=== PATIENT | female | born 1990 | race Caucasian/White ===

== ENCOUNTER 2017-01-15 20:07 | Emergency (ER) | payer OTHER ==
[2017-01-15 20:08] VITALS: BMI 28.0
[2017-01-15 20:21] VITALS: BP 118/64; PULSE 73; RESP 18; TEMP 98.4; O2SAT 98
[2017-01-15 20:41] LABS: URINE BILIRUBIN NEGATIVE (NEGATIVE); URINE BLOOD NEGATIVE (NEGATIVE); URINE GLUCOSE (UA) NEGATIVE (NEGATIVE); URINE KETONE NEGATIVE (NEGATIVE); URINE LEUKOCYTE ESTERASE NEGATIVE Leu/uL (NEGATIVE); URINE PROTEIN NEGATIVE mg/dL (<30 mg/dL); URINE UROBILINOGEN 0.2 E.U./dL (<1 E.U./dL)
[2017-01-15 20:42] LABS: URINE APPEARANCE CLEAR (CLEAR); URINE COLOR YELLOW (YELLOW)
--- NOTE | 2017-01-15 20:42 | ED PDOC ---
Arrival/HPI - General Chief Complaint: Abdominal Pain Time Seen by Provider: 01/15/17 20:35 Historian: Patient - History of Present Illness Narrative History of Present Illness (Text): 01/15/17 20:36 26 y/o female, no pmh, nkda, LMP 12/12/16, here for the test. Pt. stated that she did a test at home which she thinks that it's positive. Pt. has no nausea or vomiting, no fever or chills, no dizziness, no headache or night sweat, no palpitation, no change in vision, no other medical or psychological complaints. 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") - Pulmonary Hx Respiratory Disorders: No - Neurological Hx Neurological Disorder: Yes Hx Seizures: Yes (epilepsy) - HEENT Hx HEENT Disorder: No - Renal Hx Renal Disorder: No - Endocrine/Metabolic Hx Endocrine Disorders: No - Hematological/Oncological Hx Blood Disorders: Yes Hx Anemia: Yes - Integumentary Hx Dermatological Disorder: No - Musculoskeletal/Rheumatological Hx Musculoskeletal Disorders: No - Gastrointestinal Hx Gastrointestinal Disorders: No - Genitourinary/Gynecological Hx Genitourinary Disorders: No Hx Reproductive Disorders: Yes (OVARIAN CYST) - Psychiatric Hx Psychophysiologic Disorder: Yes Hx Anxiety: Yes Hx Depression: Yes Hx Substance Use: No - Past Surgical History Past Surgical History: No Previous - Anesthesia Hx Anesthesia: No Hx Anesthesia Reactions: No - Suicidal Assessment Feels Threatened In Home Enviroment: No Family/Social History - Physician Review Nursing Documentation Reviewed: Yes Family/Social History: Unknown Family HX Smoking Status: Never Smoked Hx Alcohol Use: No Hx Substance Use: No Hx Substance Use Treatment: No Allergies/Home Meds Allergies/Adverse Reactions: Allergies No Known Allergies Allergy (Verified 06/27/16 15:17) Review of Systems - Review of Systems Constitutional: absent: Fatigue, Weight Change, Fevers Eyes: absent: Vision Changes ENT: absent: Hearing Changes Respiratory: absent: Cough, Sputum Cardiovascular: absent: Chest Pain Gastrointestinal: absent: Abdominal Pain, Nausea, Vomiting Skin: absent: Rash, Pruritis, Skin Lesions, Laceration, Abscess, Ulcer Neurological: absent: Headache, Dizziness, Focal Weakness, Gait Changes, Speech Changes, Facial Droop, Disequilibrium, Seizure Physical Exam Vital Signs Reviewed: Yes Vital Signs Temp Pulse Resp BP Pulse Ox 01/15/17 20:15 98.4 F 73 18 118/64 98 Temperature: Afebrile Blood Pressure: Normal Pulse: Regular Respiratory Rate: Normal Appearance: Positive for: Well-Appearing, Non-Toxic, Comfortable Pain Distress: None Mental Status: Positive for: Alert and Oriented X 3 - Systems Exam Head: Present: Atraumatic, Normocephalic Pupils: Present: PERRL Extroacular Muscles: Present: EOMI Conjunctiva: Present: Normal Mouth: Present: Moist Mucous Membranes Neck: Present: Normal Range of Motion Respiratory/Chest: Present: Clear to Auscultation, Good Air Exchange. No: Respiratory Distress, Accessory Muscle Use Cardiovascular: Present: Regular Rate and Rhythm, Normal S1, S2. No: Murmurs Abdomen: Present: Normal Bowel Sounds. No: Tenderness, Distention, Peritoneal Signs Back: Present: Normal Inspection Upper Extremity: Present: Normal Inspection. No: Cyanosis, Edema Lower Extremity: Present: Normal Inspection. No: Edema Neurological: Present: GCS=15, CN II-XII Intact, Speech Normal Skin: Present: Warm, Dry, Normal Color. No: Rashes Psychiatric: Present: Alert, Oriented x 3, Normal Insight, Normal Concentration Medical Decision Making ED Course and Treatment: 01/15/17 20:55 -ua/urine 01/15/17 20:57 -urine hcg negative -UA show no UTI -Pt. is asymptomatic and no pain, will discharge home. -Discharge home with education on follow up with your own pmd and obgyn within 2 days, return to the ER for any new or worsening signs or symptoms. - Lab Interpretations Lab Results: Lab Results 01/15/17 20:25: Urine Color Yellow, Urine Appearance Clear, Urine pH 8.0, Ur Specific [place] 1.020, Urine Protein Negative, Urine Glucose (UA) Negative, Urine Ketones Negative, Urine Blood Negative, Urine Nitrate Negative, Urine Bilirubin Negative, Urine Urobilinogen 0.2, Ur Leukocyte Esterase Negative, Urine HCG, Qual Negative I have reviewed the lab results: Yes Interpretation: No clinic. lab abnormalty - PA / BUSINESS PERFORMANCE SPECIALIST / Resident Statement MD/DO has reviewed & agrees with the documentation as recorded. Disposition/Present on Arrival - Present on Arrival Any Indicators Present on Arrival: No History of DVT/PE: No History of Uncontrolled Diabetes: No Urinary Catheter: No History of Decub. Ulcer: No History Surgical Site Infection Following: None - Disposition Have Diagnosis and Disposition been Completed?: Yes Diagnosis: test negative Disposition: HOME/ ROUTINE Disposition Time: 20:57 Patient Plan: Discharge Condition: GOOD Additional Instructions: Discharge home with education on follow up with your own pmd and obgyn within 2 days, return to the ER for any new or worsening signs or symptoms. Referrals: PCP,NO [Primary Care Provider] - Follow up with primary [facility] [place] [Outside] - Follow up with primary Forms: WORK NOTE
== END 2017-01-15 21:08 | disposition home or self-care (01) ==
LOC: ED 20:07
DX: Z32.02 Encounter for pregnancy test, result negative (principal)

== ENCOUNTER 2017-01-19 16:09 | Emergency (ER) | payer OTHER ==
[2017-01-19 16:16] VITALS: BMI 29.7
[2017-01-19] MEDS ORDERED: Sodium Chloride 0.9% 1,000 ML IV STA (16:20)
[2017-01-19 16:21] VITALS: TEMP 98.2; O2SAT 100
--- NOTE | 2017-01-19 16:42 | ED PDOC ---
Arrival/HPI - History of Present Illness Time/Duration: < week (3 days) Severity Level: 3 (lower abd pain) <Marina Cook - Last Filed: 01/19/17 18:09> <Leonid Ny DO - Last Filed: 01/19/17 18:31> - General Chief Complaint: Dizziness/Lightheaded Time Seen by Provider: 01/19/17 16:20 - History of Present Illness Narrative History of Present Illness (Text): 01/19/17 16:42 26 yo F with no significant medical history presents to ER with 3 day h/o "tiredness." Patient states she took a test 3 days ago at home and it was positive. Patient admits to intermittent dizziness, mild suprapubic abd pain. Patient states her period is usually irregular, chemist organic reportedly started her on unknown OCPs approx 3 months ago (states she was given 30 pills and told to take 10 pills per month x 3 months, finished pills last week); patient states he periods were up to 4x/month, have significantly in frequency since new OCPs started, LMP 12/13/2016. Denies CP, SOB, n/v/d/c, fevers, chills, rashes, headache, confusion. 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") - Pulmonary Hx Respiratory Disorders: No - Neurological Hx Neurological Disorder: Yes Hx Seizures: Yes (possible hx of) - HEENT Hx HEENT Disorder: No - Renal Hx Renal Disorder: No - Endocrine/Metabolic Hx Endocrine Disorders: No - Hematological/Oncological Hx Blood Disorders: Yes Hx Anemia: Yes - Integumentary Hx Dermatological Disorder: No - Musculoskeletal/Rheumatological Hx Musculoskeletal Disorders: No - Gastrointestinal Hx Gastrointestinal Disorders: No - Genitourinary/Gynecological Hx Genitourinary Disorders: No Hx Reproductive Disorders: Yes (OVARIAN CYST) - Psychiatric Hx Psychophysiologic Disorder: Yes Hx Anxiety: Yes Hx Depression: Yes Hx Substance Use: No - Past Surgical History Past Surgical History: No Previous - Anesthesia Hx Anesthesia: No Hx Anesthesia Reactions: No - Suicidal Assessment Feels Threatened In Home Enviroment: No <Marina Cook - Last Filed: 01/19/17 18:09> Family/Social History Family/Social History: No Known Family HX Smoking Status: Never Smoked Hx Alcohol Use: No Hx Substance Use: No Hx Substance Use Treatment: No <Marina Cook - Last Filed: 01/19/17 18:09> Allergies/Home Meds <Marina Cook - Last Filed: 01/19/17 18:09> <Yanely Leonid - Last Filed: 01/19/17 18:31> Allergies/Adverse Reactions: Allergies No Known Allergies Allergy (Verified 01/19/17 16:16) Review of Systems - Physician Review All systems were reviewed & negative as marked: Yes - Review of Systems Constitutional: Fatigue Eyes: Normal. absent: Vision Changes ENT: Normal Respiratory: Normal. absent: SOB, Cough, Sputum, Wheezing Cardiovascular: VARMA. absent: Chest Pain, Palpitations, Edema, Calf Pain, Orthopnea, Syncope Gastrointestinal: Abdominal Pain (mild, suprapubic). absent: Constipation, Diarrhea, Nausea, Vomiting Genitourinary Female: absent: Dysuria, Frequency, Hematuria, Urine Output Changes, Vaginal Bleeding, Vaginal Discharge Musculoskeletal: absent: Back Pain, Neck Pain Skin: absent: Rash, Skin Lesions Neurological: Dizziness (mild, intermittent). absent: Headache, Focal Weakness Endocrine: absent: Polyuria, Polydipsia Hemo/Lymphatic: absent: Adenopathy, Easy Bleeding, Easy Bruising Psychiatric: absent: Anxiety, Depression <Marina Cook - Last Filed: 01/19/17 18:09> Physical Exam Vital Signs Reviewed: Yes Temperature: Afebrile Blood Pressure: Normal Pulse: Regular Respiratory Rate: Normal Appearance: Positive for: Well-Appearing, Non-Toxic, Comfortable Pain Distress: None Mental Status: Positive for: Alert and Oriented X 3 - Systems Exam Head: Present: Atraumatic, Normocephalic Pupils: Present: PERRL Extroacular Muscles: Present: EOMI Conjunctiva: Present: Normal. No: Icteric Mouth: Present: Moist Mucous Membranes Pharnyx: Present: Normal Nose (Internal): Present: Normal Inspection Neck: Present: Normal Range of Motion. No: Meningeal Signs, JVD Respiratory/Chest: Present: Clear to Auscultation, Good Air Exchange. No: Respiratory Distress, Accessory Muscle Use, Wheezes, Rhonchi Cardiovascular: Present: Regular Rate and Rhythm, Normal S1, S2. No: Murmurs Abdomen: Present: Normal Bowel Sounds. No: Tenderness, Distention, Peritoneal Signs Upper Extremity: Present: Normal Inspection, NORMAL PULSES, Capillary Refill < 2s. No: Cyanosis, Edema Lower Extremity: Present: Normal Inspection, NORMAL PULSES. No: Edema, CALF TENDERNESS, Capillary Refill < 2 s Neurological: Present: GCS=15, CN II-XII Intact, Speech Normal Skin: Present: Warm, Dry, Normal Color. No: Rashes Psychiatric: Present: Alert, Oriented x 3, Normal Insight, Normal Concentration <Marina Cook - Last Filed: 01/19/17 18:09> Medical Decision Making - Lab Interpretations I have reviewed the lab results: Yes Interpretation: All labs normal <Marina Cook - Last Filed: 01/19/17 18:09> <Leonid Ny DO - Last Filed: 01/19/17 18:31> ED Course and Treatment: 01/19/17 17:10 26 yo F presents with late menstrual period, states home test was positive. Urine and blood HCG, labs. IVF. (Marina Cook) - Lab Interpretations Lab Results: 01/19/17 17:25 01/19/17 17:25 Lab Results 01/19/17 17:25: Beta HCG, Quant 12.87 H 01/19/17 17:25: Sodium 141, Potassium 4.0, Chloride 104, Carbon Dioxide 25, Anion Gap 16, BUN 11, Creatinine 0.5, Est GFR ( Amer) > 60, Est GFR (Non- Af Amer) > 60, Random Glucose 79, Calcium 9.8, Total Bilirubin 0.6, AST 27, ALT 23, Alkaline Phosphatase 59, Total Protein 8.6 H, Albumin 4.6, Globulin 3.9, Albumin/Globulin Ratio 1.2, Lipase 105 01/19/17 17:25: Urine Color Yellow, Urine Appearance Clear, Urine pH 6.0, Ur Specific [place] >= 1.030, Urine Protein Negative, Urine Glucose (UA) Negative, Urine Ketones Negative, Urine Blood Negative, Urine Nitrate Negative, Urine Bilirubin Negative, Urine Urobilinogen 0.2, Ur Leukocyte Esterase Trace H, Urine RBC Pending, Urine WBC Pending, Urine HCG, Qual Negative 01/19/17 17:25: WBC 4.7, RBC 4.82, Hgb 11.7 L, Hct 36.8, MCV 76.3 L, MCH 24.3 L , MCHC 31.8, RDW 16.0 H, Plt Count 351, MPV 10.0, Gran % 48.1 L, Lymph % (Auto) 41.9 H, [place] % (Auto) 8.1 H, Eos % (Auto) 1.1 L, Baso % (Auto) 0.8, Gran # 2.27 , Lymph # 2.0, [place] # 0.4, Eos # 0.1, Baso # 0.04 - Medication Orders Current Medication Orders: Discontinued Medications Sodium Chloride (Sodium Chloride 0.9%) 1,000 mls @ 1,000 mls/hr IV .Q1H STA Stop: 01/19/17 17:19 Last Admin: 01/19/17 17:33 Dose: 1,000 mls/hr - PA / POWER SUPPLY ENGINEER / Resident Statement FARHAT has reviewed & agrees with the documentation as recorded. FARHAT has examined the patient and agrees with the treatment plan. <Leonid Ny DO - Last Filed: 01/19/17 18:31> Disposition/Present on Arrival - Present on Arrival Any Indicators Present on Arrival: No History of DVT/PE: No History of Uncontrolled Diabetes: No Urinary Catheter: No History of Decub. Ulcer: No History Surgical Site Infection Following: None - Disposition Have Diagnosis and Disposition been Completed?: Yes Disposition Time: 17:55 Patient Plan: Discharge <Marina Cook - Last Filed: 01/19/17 18:09> <Leonid Ny DO - Last Filed: 01/19/17 18:31> - Disposition Diagnosis: Dehydration Disposition: HOME/ ROUTINE Discharge Instructions (ExitCare): Dehydration (ED) Print Language: MALTESE Additional Instructions: Please followup with your primary care physician or at [place] [facility] [place] within 1- 3 days. Please followup with your chemist organic or with Dr. Marcial within 1-2 days. Referrals: [facility] [place] - Follow up with primary Connie Marcial MD [Staff Provider] - Follow up with primary
[2017-01-19 17:33] VITALS: PULSE 69
[2017-01-19 17:35] LABS: ADD MANUAL DIFF? NO
[2017-01-19 17:40] LABS: BASO # 0.04 K/mm3 (0.0-2.0); BASO % 0.8 % (0.0-3.0); EOS # 0.1 (0.0-0.7); EOS % 1.1 % (1.5-5.0); GRAN # 2.27 (1.4-6.5); GRAN % 48.1 % (50.0-68.0); HEMATOCRIT 36.8 % (36.0-48.0); LYMPH % 41.9 % (22.0-35.0); MEAN CELL VOLUME 76.3 fL (80.0-105.0); MEAN CORPUSCULAR HEMOGLOBIN 24.3 pg (25.0-35.0); MEAN CORPUSCULAR HGB CONC 31.8 g/dl (31.0-37.0); MONO # 0.4 (0.1-0.6); MONO % 8.1 % (1.0-6.0); PLATELET COUNT 351 10^3/uL (120.0-450.0); WHITE BLOOD COUNT 4.7 10^3/ul (4.5-11.0)
[2017-01-19 17:41] LABS: URINE BILIRUBIN NEGATIVE (NEGATIVE); URINE BLOOD NEGATIVE (NEGATIVE); URINE GLUCOSE (UA) NEGATIVE (NEGATIVE); URINE KETONE NEGATIVE (NEGATIVE); URINE LEUKOCYTE ESTERASE TRACE Leu/uL (NEGATIVE); URINE PROTEIN NEGATIVE mg/dL (<30 mg/dL); URINE UROBILINOGEN 0.2 E.U./dL (<1 E.U./dL)
[2017-01-19 17:45] LABS: URINE COLOR YELLOW (YELLOW)
[2017-01-19 17:46] LABS: URINE APPEARANCE CLEAR (CLEAR)
[2017-01-19 17:51] LABS: ALB/GLOB RATIO 1.2 (1.1-1.8); ALKALINE PHOSPHATASE 59 U/L (38-133); ALT/SGPT 23 U/L (7-56); AST/SGOT 27 U/L (15-39); BILIRUBIN,TOTAL 0.6 mg/dL (0.2-1.3); BLOOD UREA NITROGEN 11 mg/dL (7-21); CALCIUM 9.8 mg/dL (8.4-10.5); CARBON DIOXIDE 25 mmol/L (21-33); CHLORIDE 104 mmol/L (98-107); GFR AFRICAN-AMERICAN > 60; GLUCOSE,RANDOM 79 mg/dL (70-110); LIPASE 105 U/L (23-300); SODIUM 141 mmol/L (132-148); TOTAL PROTEIN 8.6 g/dL (5.8-8.3)
[2017-01-19 18:41] LABS: URINE BACTERIA MOD (NEG)
[2017-01-19 19:00] VITALS: BP 124/70; RESP 16
== END 2017-01-19 18:38 | disposition home or self-care (01) ==
LOC: ED 16:09
DX: E86.0 Dehydration (principal)
CPT/HCPCS: 80053; 81001; 82948; 83690; 84702; 84703; 85025; 87086; 99285; G0480; J7040

== ENCOUNTER 2017-05-19 12:07 | Emergency (ER) | payer OTHER ==
[2017-05-19 12:07] VITALS: BMI 29.7
[2017-05-19 13:02] VITALS: PULSE 72; O2SAT 100
[2017-05-19 13:21] LABS: URINE BILIRUBIN NEGATIVE (NEGATIVE); URINE BLOOD NEGATIVE (NEGATIVE); URINE GLUCOSE (UA) NEGATIVE (NEGATIVE); URINE KETONE NEGATIVE (NEGATIVE); URINE LEUKOCYTE ESTERASE MODERATE Leu/uL (NEGATIVE); URINE PROTEIN NEGATIVE mg/dL (<30 mg/dL); URINE UROBILINOGEN 0.2 E.U./dL (<1 E.U./dL)
[2017-05-19 13:23] LABS: URINE APPEARANCE SL CLOUDY (CLEAR); URINE COLOR YELLOW (YELLOW)
[2017-05-19 13:28] LABS: URINE BACTERIA MANY (NEG); URINE EPITHELIAL CELLS MANY /hpf (0-5); URINE RBC NEGATIVE /hpf (0-2)
[2017-05-19 13:50] LABS: BASO # 0.04 K/mm3 (0.0-2.0); BASO % 0.6 % (0.0-3.0); EOS # 0.1 (0.0-0.7); EOS % 0.8 % (1.5-5.0); GRAN # 3.4 (1.4-6.5); HEMATOCRIT 34.6 % (36.0-48.0); LYMPH # 2.2 (1.2-3.4); LYMPH % 35.5 % (22.0-35.0); MEAN CELL VOLUME 76.7 fl (80.0-105.0); MEAN CORPUSCULAR HEMOGLOBIN 24.2 pg (25.0-35.0); MEAN CORPUSCULAR HGB CONC 31.5 g/dl (31.0-37.0); MEAN PLATELET VOLUME 9.2 fl (7.0-11.0); MONO # 0.6 (0.1-0.6); MONO % 9.1 % (1.0-6.0); WHITE BLOOD COUNT 6.3 10^3/ul (4.5-11.0)
--- NOTE | 2017-05-19 13:57 | ED PDOC ---
Addendum entered and electronically signed by Tom Alicea PA-C 05/22/17 15:03: Addendum Addendum: 05/22/17 15:03 Urine culture show gram positive cocci, discharge home with the macrobid. Original Note: Arrival/HPI - General Chief Complaint: Female Genitourinary Time Seen by Provider: 05/19/17 12:15 Historian: Patient - History of Present Illness Narrative History of Present Illness (Text): 05/19/17 13:55 27-year-old 78 weeks . Patient presents today with a one-month history of lower abdominal pain and vaginal discharge. Patient denies vaginal bleeding. Complaining of lower abdominal cramping. Patient states while in our area she was given Flagyl month ago for which 10 days. Patient states the discharge has not resolved. Patient denies nausea vomiting diarrhea constipation. Denies chest pain or shortness of breath. Patient is complaining of burning sensation with urination. Denies dizziness or weakness. 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") - Pulmonary Hx Respiratory Disorders: No - Neurological Hx Neurological Disorder: Yes Hx Seizures: Yes (possible hx of) - HEENT Hx HEENT Disorder: No - Renal Hx Renal Disorder: No - Endocrine/Metabolic Hx Endocrine Disorders: No - Hematological/Oncological Hx Blood Disorders: Yes Hx Anemia: Yes - Integumentary Hx Dermatological Disorder: No - Musculoskeletal/Rheumatological Hx Musculoskeletal Disorders: No - Gastrointestinal Hx Gastrointestinal Disorders: No - Genitourinary/Gynecological Hx Genitourinary Disorders: No Hx Reproductive Disorders: Yes (OVARIAN CYST) - Psychiatric Hx Psychophysiologic Disorder: Yes Hx Anxiety: Yes Hx Depression: Yes Hx Substance Use: No - Past Surgical History Past Surgical History: No Previous - Anesthesia Hx Anesthesia: No Hx Anesthesia Reactions: No - Suicidal Assessment Feels Threatened In Home Enviroment: No Family/Social History - Physician Review Nursing Documentation Reviewed: Yes Family/Social History: Unknown Family HX Smoking Status: Never Smoked Hx Alcohol Use: No Hx Substance Use: No Hx Substance Use Treatment: No Allergies/Home Meds Allergies/Adverse Reactions: Allergies No Known Allergies Allergy (Verified 05/19/17 12:58) Review of Systems - Review of Systems Constitutional: absent: Fatigue, Fevers Respiratory: absent: SOB, Cough Cardiovascular: absent: Chest Pain, Palpitations Gastrointestinal: Abdominal Pain. absent: Constipation, Diarrhea, Nausea, Vomiting Genitourinary Female: Dysuria, Vaginal Discharge. absent: Vaginal Bleeding Musculoskeletal: absent: Arthralgias, Back Pain, Neck Pain Skin: absent: Rash, Pruritis Neurological: absent: Headache, Dizziness Psychiatric: absent: Anxiety, Depression Physical Exam Vital Signs Reviewed: Yes Vital Signs Temp Pulse Resp BP Pulse Ox 05/19/17 15:00 98.0 F 72 18 115/67 100 05/19/17 12:48 98.7 F 72 16 105/70 100 Temperature: Afebrile Blood Pressure: Normal Pulse: Regular Respiratory Rate: Normal Appearance: Positive for: Well-Appearing, Non-Toxic, Comfortable Pain Distress: None Mental Status: Positive for: Alert and Oriented X 3 - Systems Exam Head: Present: Atraumatic Mouth: Present: Moist Mucous Membranes Neck: Present: Normal Range of Motion Respiratory/Chest: Present: Clear to Auscultation, Good Air Exchange. No: Respiratory Distress, Accessory Muscle Use Cardiovascular: Present: Regular Rate and Rhythm, Normal S1, S2. No: Murmurs Abdomen: Present: Tenderness (+ minimal suprapubic tenderness), Normal Bowel Sounds. No: Distention, Peritoneal Signs, Rebound, Guarding Genitourinary/Pelvic Exam: Present: Normal External Genitalia, Vaginal Discharge , Cervical os Closed, Other (chaparoned by carmen EMT). No: Vaginal Lesions, Adenexal Tenderness, Adenexal Mass, Cervical Motion Tendernes, Odor Back: Present: Normal Inspection. No: CVA Tenderness, Midline Tenderness, Paraspinal Tenderness Lower Extremity: No: Edema Neurological: Present: GCS=15, Speech Normal Skin: Present: Warm, Dry, Normal Color. No: Rashes Psychiatric: Present: Alert, Oriented x 3 Medical Decision Making ED Course and Treatment: 05/19/17 13:56 Patient is nontoxic well appearing in no distress. vitals stable. CBC: hb.9 CMP: wnl Beta hC TYPE AND SCREEN: O+ Urinalysis:+ leukocytes, + bacteria Ultrasound: FINDINGS: UTERUS: Gestational sac: Single intrauterine gestation. Heart rate: 171 bpm. age (Ultrasound estimated): 7 weeks and 5 days. Coreen-gestational hemorrhage: None. Date of delivery (Ultrasound estimated) : 12/31/2017 Uterus measures 9.6 x 8.0 x 0.9 cm. Normal in size and appearance. CERVIX: Long and closed. No cervical abnormality seen. RIGHT OVARY: Measures 2.9 x 1.6 x 2.9 cm. No mass lesion. Normal flow. LEFT OVARY: Measures 2.5 x 1.9 x 2.9 cm. No solid mass. Normal flow. FREE FLUID: None. OTHER FINDINGS: None. IMPRESSION: Single live intrauterine gestation with mean gestational age of 7 weeks and 5 days. The estimated date of delivery by ultrasound is 12/31/2017. The ultrasound dates correspond with the clinical dates. Discussed all the results the patient. advised f/u with the refrigeration person within the next 2 days. advised immediate return if symptoms worsen,persist or if new symptoms develop. Impression: threatened Tylenol every 4 hours as needed for pain Increase fluids Macrobid; 1 tablet twice daily x 10 days. Followup with the study director within the next 2 days Return immediately if symptoms worsen persist or if new symptoms develop: High fevers, heavy bleeding, severe abdominal pain, vomiting, diarrhea, dizziness or weakness or any other concerning symptoms develop. 05/19/17 14:42 - Lab Interpretations Lab Results: 05/19/17 13:20 05/19/17 13:20 Lab Results 05/19/17 13:20: Blood Type O POSITIVE, Antibody Screen Negative, BBK History Checked Patient has bt 05/19/17 13:20: Beta HCG, Quant 36606.00 H 05/19/17 13:20: WBC 6.3 D, RBC 4.51, Hgb 10.9 L, Hct 34.6 L, MCV 76.7 L, MCH 24.2 L, MCHC 31.5, RDW 16.0 H, Plt Count 348, MPV 9.2, Gran % 54.0, Lymph % ( Auto) 35.5 H, [place] % (Auto) 9.1 H, Eos % (Auto) 0.8 L, Baso % (Auto) 0.6, Gran # 3.40, Lymph # 2.2, [place] # 0.6, Eos # 0.1, Baso # 0.04 05/19/17 13:20: Sodium 137, Potassium 4.0, Chloride 104, Carbon Dioxide 23, Anion Gap 14, BUN 11, Creatinine 0.5, Est GFR ( Amer) > 60, Est GFR (Non- Af Amer) > 60, Random Glucose 94, Calcium 9.3, Total Bilirubin 0.1 L, AST 29, ALT 25, Alkaline Phosphatase 47, Total Protein 7.3, Albumin 4.1, Globulin 3.2, Albumin/Globulin Ratio 1.3 05/19/17 13:05: Urine Color Yellow, Urine Appearance Sl cloudy, Urine pH 7.0, Ur Specific [place] 1.025, Urine Protein Negative, Urine Glucose (UA) Negative, Urine Ketones Negative, Urine Blood Negative, Urine Nitrate Negative, Urine Bilirubin Negative, Urine Urobilinogen 0.2, Ur Leukocyte Esterase Moderate H, Urine RBC Negative, Urine WBC 2 - 5, Ur Epithelial Cells Many, Urine Bacteria Many - RAD Interpretation Radiology Orders: 05/19/17 13:02 OB TRANSVAGINAL [US] Stat Disposition/Present on Arrival - Present on Arrival Any Indicators Present on Arrival: No History of DVT/PE: No History of Uncontrolled Diabetes: No Urinary Catheter: No History of Decub. Ulcer: No History Surgical Site Infection Following: None - Disposition Have Diagnosis and Disposition been Completed?: Yes Diagnosis: Threatened , Urinary tract infection in Disposition: HOME/ ROUTINE Disposition Time: 14:26 Patient Plan: Discharge Patient Problems: Current Active Problems Problem Status Onset Threatened Acute Urinary tract infection in Acute Condition: GOOD Discharge Instructions (ExitCare): Threatened Miscarriage (ED) Additional Instructions: Tylenol every 4 hours as needed for pain Increase fluids Macrobid; 1 tablet twice daily x 10 days. Followup with the study director within the next 2 days Return immediately if symptoms worsen persist or if new symptoms develop: High fevers, heavy bleeding, severe abdominal pain, vomiting, diarrhea, dizziness or weakness or any other concerning symptoms develop. Prescriptions: Nitrofurantoin Macrocrystals [Macrobid] 100 mg PO BID #20 cap Multivit/Folic Acid/I [ Plus] 1 tab PO DAILY #30 tab Referrals: Leonid Crain DO [Staff Provider] - [facility] - Follow up with primary Forms: [employer] (Kyrgyz)
[2017-05-19 14:00] LABS: ALB/GLOB RATIO 1.3 (1.1-1.8); ALKALINE PHOSPHATASE 47 U/L (38-133); ALT/SGPT 25 U/L (7-56); AST/SGOT 29 U/L (15-39); BILIRUBIN,TOTAL 0.1 mg/dL (0.2-1.3); BLOOD UREA NITROGEN 11 mg/dL (7-21); CALCIUM 9.3 mg/dL (8.4-10.5); CARBON DIOXIDE 23 mmol/L (21-33); CHLORIDE 104 mmol/L (98-107); GFR AFRICAN-AMERICAN > 60; GLUCOSE,RANDOM 94 mg/dL (70-110); SODIUM 137 mmol/L (132-148); TOTAL PROTEIN 7.3 g/dL (5.8-8.3)
--- NOTE | 2017-05-19 14:20 | US ---
PROCEDURE: OB Pelvic Ultrasound HISTORY: , pain COMPARISON: None available. FINDINGS: UTERUS: Gestational sac: Single intrauterine gestation. Heart rate: 171 bpm. age (Ultrasound estimated): 7 weeks and 5 days. Coreen-gestational hemorrhage: None. Date of delivery (Ultrasound estimated) : 12/31/2017 Uterus measures 9.6 x 8.0 x 0.9 cm. Normal in size and appearance. CERVIX: Long and closed. No cervical abnormality seen. RIGHT OVARY: Measures 2.9 x 1.6 x 2.9 cm. No mass lesion. Normal flow. LEFT OVARY: Measures 2.5 x 1.9 x 2.9 cm. No solid mass. Normal flow. FREE FLUID: None. OTHER FINDINGS: None. IMPRESSION: Single live intrauterine gestation with mean gestational age of 7 weeks and 5 days. The estimated date of delivery by ultrasound is 12/31/2017. The ultrasound dates correspond with the clinical dates.
[2017-05-19 15:04] VITALS: BP 115/67; RESP 18; TEMP 98
== END 2017-05-19 15:25 | disposition home or self-care (01) ==
LOC: ED 12:07
DX: O20.0 Threatened abortion (principal); O23.41 Unspecified infection of urinary tract in pregnancy, first trimester; Z3A.01 Less than 8 weeks gestation of pregnancy